=== PATIENT | female | born 1950 | race Caucasian/White ===

== ENCOUNTER → 2022-04-03 | Outpatient (CLI) | payer OTHER ==
[~2022-04-03] MED LIST: IOPAMIDOL 370 MG/ML 100 ML INFUS..BTL INJ ONE
[2022-04-03 12:25] LABS: CREATININE, SERUM 0.96 mg/dL (0.57-1.11)
== END ==
LOC: CT 11:18
PROVIDERS: ATTEND Internal Medicine
DX: K85.90 Acute pancreatitis without necrosis or infection, unspecified (principal)
CPT/HCPCS: 36415; 74160; 82565; 84520; Q9967